=== PATIENT | male | born 1950 | race Caucasian/White ===

== ENCOUNTER → 2024-01-31 14:49 | Outpatient (REF) | payer OTHER, MEDICARE, SELFPAY | LOC: RCS 14:49 | PROVIDERS: ATTENDING PHYSICIAN Nuclear Medicine Nuclear Cardiology; FAMILY PHYSICIAN Internal Medicine Geriatric Medicine | DX: I10 Essential (primary) hypertension (principal); E78.2 Mixed hyperlipidemia; I49.3 Ventricular premature depolarization; I34.0 Nonrheumatic mitral (valve) insufficiency | CPT/HCPCS: 93306 ==

== ENCOUNTER → 2024-10-08 14:11 | Outpatient (REF) | payer OTHER, SELFPAY ==
--- NOTE | 2024-09-25 17:31 | PN.DIAED02 ---
Referral
DSME Class Series Code: [id number]
Referred For: Diabetes Self-Management Training, Medical Nutrition Therapy, Self-Blood Glucose Monitoring, Long-Term Complication Instruction, Accute Complication Instruction, Continuous Glucose Monitoring, Medication management, Insulin
Instruction, Care Coordination, Disease Management
PHI Release Authorization Form Signed: Yes
Patient Problems:
Current Active Problems
Problem Status Onset
Type 2 diabetes mellitus without complications
Demographic
(1) Type 2 diabetes mellitus without complications
Status: Acute Code(s): E11.9 - Type 2 diabetes mellitus without complications
Patient's primary language-: Angolan
Education: High school/GED
Occupation: Professional
Hours Worked/Week: 20-40
- Social
Primary Support Person: Self
Primary Care Takers: Self
Living Arrangements: Self
- Learning Methods
Preferred Method: Reading, Lecture/audio
Barriers to Learning: None
Glycemic Control
- Blood Glucose Monitoring Assessment
Date: 08/27/24 (134 mg/dL)
Blood glucose monitoring at home: No (Educated on a Contour Next EZ meter)
- Hemoglobin A1c
Date: 09/04/24
A1C Percentage (%): 6.6
Medical History of Diabetes
Family Diabetes History: Grandfather
Previous Diabetes Education: No
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
tunnel left hand and pain in knuckle right hand)
Current Home Medication
- Insulin Management
Patient adjusts own insulin dosages: Yes
Measures
- Anthropometrics
Height: 5 ft 10 in
Actual Weight: 206 lb
- Blood Pressure / Pulse
Blood pressure: 153/74
Pulse: 60
- Diabetes Management
Medical Management for Diabetes: Complete physical exam (08/2024), Dental exam (08/2023), Dilated eye exam (03/2024), Flu Vaccination (08/2023), Pneumonia vaccination (08/2024)
Self-Care
- Tobacco Usage
Do you now, or have you ever smoked?: Never smoked
- Alcohol & Drugs Usage
Drinks Alcohol: Yes
Amount/day: < 1 drink per day
- Meals & Dining
Meals & Dining: Patient skips meals: No, Food Intolerance / Allergy: No, Cultural / Adventism Dietary Needs: No
Primary Harness Mender: Self
Dining Out Frequency: 1-3x per week
- Physical Activity
Physical Limitation: No
Patient participates in physical Activity: Yes
Activity Types: Combination, Strength training, walking
Duration: 31-40 minutes
Frequency: 3-5x per week
- Self Foot-Care
Performs Self Foot-Exam: No
- Patient-Self Assessment
Diabetes Knowledge: Fair
Feelings About Diabetes: Fear, Overwhelmed / Confused, Sadness / Depression, Anger
General Health: Fair
Importance of Health: Extremely
Stress Level: Medium
Diabetes Interferes With:: Nothing
Barriers to Diabetes Management: Nothing
Depression Survey Score: 0
- Diabetes Identification
Carries Diabetes Identification: No
Care Plan
- Education Needs
Patient Education Needs: Diabetes disease process, Chronic complications, Acute complications, Medication, Monitoring, Physical activity, Psychosocial Adjustment, Nutritional management, Goal setting & problem solving
Recommended Diabetes Training Program based on assessment: Outpatient Diabetes Education Program
- Plan of Care
Plan of Care:
I met with Toño for his initial assessment for the September DSME course. He verbalized that he has had pre-diabetes for appx 3 years and his recent A1c in 08/2024 was 6.6 %. He has been taking Metformin 500 mg daily since he was diagnosed with
pre-diabetes. He has recently increased his exercise to appx 4 to 5 times per week for 45 minutes, a combination of weights and walking. We discussed increasing the duration and/or intensity as one of his goals. Toño was instructed on how to use a
Contour Next EZ glucometer and demonstrated a fingerstick in the office. His bg was 134 mg/dL a few hours post breakfast. I provided written material on a monitoring schedule and glucose target ranges fasting and 2 hours post meal. We reviewed
basic nutrition and label reading and I encouraged him to write down his current meals so he an ask specific questions in class. Toño will reach out to the office with any questions prior to starting the DSME program.
--- NOTE | 2024-09-26 12:17 | PN.DIAED04 ---
Education Record
- Education Record
Class Attended: Other (initial DSME assessment)
DSME Class Series Code: [id number]
Instructor: Registered Nurse (Bisi Flaherty RN)
Pre-Program Knowledge: Needs review / Assistance
Pre-Test Score (%): 63
Goals
- Goal 1
Being Active: Exercise 15 minutes-3 times per week, Exercise more often (increase duration from 45 minutes to 60 minutes)
Goals To Be Evaluated: Exercise 15 mins-3x/week. Exercise more often
- Goal 2
Healthy Eating: Make better food choices
Goals To Be Evaluated: Make better food choices
- Goal 3
Monitoring: Follow monitoring schedule
Goals To Be Evaluated: Follow monitoring times
--- NOTE | 2024-10-10 15:37 | PN.DIAED04 ---
Education Record
- Education Record
Class Attended: Class 1
DSME Class Series Code: [id number]
Instructor: Nurse Practitioner (ARCHANA Castillo)
Class Curriculum:
Outpatient Diabetes Education Program:
Class 1 (120 minutes)
Describe the diabetes disease process and treatment options
Diabetes management
Develop personal strategies to promote health and behavior change
Integrate psychosocial adjustment for daily living
Monitor blood glucose and other parameters. Interpret and use the results for self-management decision making
Prevent, detect, and treat acute complications
Class Length (mins): 120
Post-Class 1 Test Score (%): 88
--- NOTE | 2024-10-10 15:37 | PN.DIAED14 ---
This is to notify you that your patient with diabetes, WENCESLAO IRBY ( 1950), has enrolled in our diabetes self-management classes that are being held at [facility].
These classes will include an introduction to diabetes, diet, medication, exercise and prevention of complications. At the end of our class series, you will receive a report of your patient's participation and progress for your records.
Please contact me at the Diabetes Center, , if there is any particular information regarding your patient that might be helpful to me.
Sincerely,
Elmer MAGAÑA-ROXY,[facility]
== END ==
LOC: DES 14:11
PROVIDERS: ATTENDING PHYSICIAN Internal Medicine Geriatric Medicine
DX: E11.9 Type 2 diabetes mellitus without complications (principal)
CPT/HCPCS: 99078

== ENCOUNTER → 2024-10-15 10:20 | Outpatient (REF) | payer OTHER, SELFPAY ==
--- NOTE | 2024-10-16 15:49 | PN.DIAED04 ---
Education Record
- Education Record
Class Attended: Class 2
DSME Class Series Code: [id number]
Instructor: Registered Dietitian (Nguyen Dowling, RD, LDN, CDE)
Class Curriculum:
Outpatient Diabetes Education Program:
Class 2 (120 minutes)
Incorporate nutritional management into lifestyle
Understanding nutritional value
Understanding carbohydrate counting
Class Length (mins): 120
== END ==
LOC: DES 10:20
PROVIDERS: ATTENDING PHYSICIAN Internal Medicine Geriatric Medicine
DX: E11.9 Type 2 diabetes mellitus without complications (principal)
CPT/HCPCS: 99078

== ENCOUNTER → 2024-10-22 08:29 | Outpatient (REF) | payer OTHER, SELFPAY ==
--- NOTE | 2024-10-23 10:14 | PN.DIAED04 ---
Education Record
- Education Record
Class Attended: Class 3
DSME Class Series Code: [id number]
Instructor: Registered Dietitian (Nguyen Dowling, RD, LDN, CDE)
Class Curriculum:
Outpatient Diabetes Education Program:
Class 3 (120 minutes)
Incorporate nutritional management into lifestyle
Class Length (mins): 120
== END ==
LOC: DES 08:29
PROVIDERS: ATTENDING PHYSICIAN Internal Medicine Geriatric Medicine
DX: E11.9 Type 2 diabetes mellitus without complications (principal)
CPT/HCPCS: 99078

== ENCOUNTER → 2024-10-29 09:16 | Outpatient (REF) | payer OTHER, SELFPAY | LOC: DES 09:16 | PROVIDERS: ATTENDING PHYSICIAN Internal Medicine Geriatric Medicine | DX: E11.9 Type 2 diabetes mellitus without complications (principal) | CPT/HCPCS: 99078 ==

== ENCOUNTER → 2024-11-05 12:27 | Outpatient (REF) | payer OTHER, SELFPAY ==
--- NOTE | 2024-11-08 10:20 | PN.DIAED04 ---
Education Record
- Education Record
Class Attended: Class 5
DSME Class Series Code: [id number]
Instructor: Nurse Practitioner (ARCHANA Castillo)
Class Curriculum:
Outpatient Diabetes Education Program:
Class 5 (120 minutes)
Prevent, detect, and treat acute complications
Prevent, detect, and treat chronic complications through risk reduction
Develop personal strategies to address psychosocial issues and concerns
Development of diabetes self-management support plan
Letter to physician with DSMS plan attached sent
Class Length (mins): 120
Post-Program Knowledge: Demonstrates competency
Post-Test Score (%): 98
Post-Program Assessment
- Post-Program Assessment
Actual Weight: 205 lb
Blood pressure: 147/69
Post-Program Depression Survey Score: 5
Reviewing Previous Goals?: Yes
Pre-Program Depression Survey Score: 0
- Goals 1 Evaluation
Goals To Be Evaluated: Exercise 15 mins-3x/week. Exercise more often
- Goals 2 Evaluation
Goals To Be Evaluated: Make better food choices
- Goals 3 Evaluation
Goals To Be Evaluated: Follow monitoring times
--- NOTE | 2024-11-08 10:21 | PN.DIAED16 ---
This is to notify you that your patient with diabetes, WENCESLAO Prosper IRBY ( 1950), has attended the entire series of Diabetes Self-Management Education Classes.
Class 1 (120 minutes): Diabetes Overview - monitoring, stress/psychosocial adjustment, support, goal setting
Class 2 (120 minutes): Meal Planning - serving sizes, menu plans
Class 3 (120 minutes): Introduction to Carbohydrate Counting, Analyzing Food Labels
Class 4 (120 minutes): Medication, Exercise and Activity
Class 5 (120 minutes): Sick Day Management, Strategies to Reduce Complications, Problem Solving, Resources
The following behavioral goals were identified:
Exercise 15 mins-3x/week
Exercise more often
Make better food choices
Follow monitoring times
A follow-up call will be made within three to six months to evaluate attainment of these goals and to check post-program Hemoglobin A1c and overall progress. All class participants are encouraged to contact me if I can be any further assistance in
learning how to manage their diabetes.
Sincerely,
Elmer MAGAÑA-, [facility] [place]
== END ==
LOC: DES 12:27
PROVIDERS: ATTENDING PHYSICIAN Internal Medicine Geriatric Medicine
DX: E11.9 Type 2 diabetes mellitus without complications (principal)
CPT/HCPCS: 99078

== ENCOUNTER → 2024-11-26 09:32 | Outpatient (REF) | payer OTHER, SELFPAY ==
[2024-11-26 10:39] LABS: Urine Albumin 1+ (Neg - Trace); Urine Bilirubin Negative (Negative); Urine Character Clear (Clear); Urine Color Yellow; Urine Glucose Negative (Negative); Urine Ketone 2+ (Negative); Urine Leukocyte Negative (Negative); Urine Nitrite Negative (Negative); Urine Occult Blood 1+ (Negative); Urine Specific Gravity 1.015 (<1.030); Urine Urobilinogen Negative (Neg - 1+)
[2024-11-26 10:49] LABS: % Basophils 0.6 % (0-2); % Eosinophils 2.7 % (0-6); % Immature Granulocytes 0.2 % (0-0.5); % Lymphocytes 26.7 % (20.5-51.1); % Monocytes 9.5 % (1.7-9.3); % Neutrophils 60.3 % (42.2-75.2); Absolute Eosinophils 0.1 10^3/uL (0-0.7); Absolute Lymphocytes 1.3 10^3/uL (1.2-3.4); Absolute Monocytes 0.5 10^3/uL (0.1-0.6); Absolute Neutrophils 2.9 10^3/uL (1.4-6.5); Hematocrit 34.3 % (39.0-52.0); Hemoglobin 12.1 g/dL (13.0-18.0); Mean Corp Hgb Conc. 35.3 g/dL (33.0-37.0); Mean Corpuscular Hgb 32.4 pg (27.0-31.0); Nucleated Red Blood Cells % 0 % (-); Platelet Count 170 10^3/uL (130-400); Red Blood Cell Count 3.73 10^6/uL (4.70-6.10); Red Cell Dist. Width 12.1 % (11.5-14.5); White Blood Cell Count 4.8 10^3/uL (4.8-10.8)
[2024-11-26 11:24] LABS: Urine Mucus Moderate; Urine Red Blood Cell 0-2 /HPF (0-2); Urine White Cell 0-2 /HPF (0-5)
[2024-11-26 11:26] LABS: Urine Bacteria Few (Negative)
[2024-11-26 11:27] LABS: Urine Hyaline Cast 0-2 /LPF (0-2); Urine Squamous Cell 0-2 /LPF (Few)
[2024-11-26 12:03] LABS: Glycohemoglobin (HgbA1c) 5.9 % (4.0-5.6)
[2024-11-26 14:51] LABS: ALT (SGPT) 22 U/L (0-50); AST (SGOT) 28 U/L (17-59); Albumin 4.9 g/dl (3.5-5.0); Alkaline Phosphatase 52 U/L (38-126); Blood Urea Nitrogen 15 mg/dl (9-20); Calcium 9.2 mg/dl (8.4-10.2); Carbon Dioxide 25 mmol/L (22-30); Chloride 104 mmol/L (98-107); Glucose 127 mg/dl (70-99); HDL Cholesterol 67 mg/dl; LDL Cholesterol, Calculated 142 mg/dl; Potassium 4.1 mmol/L (3.5-5.1); Sodium 142 mmol/L (135-145); Total Bilirubin 1.2 mg/dl (0.2-1.3); Total Cholesterol 225 mg/dl (50-199); Triglyceride 82 mg/dl (10-149); Very Low Density Lipoprotein 16 mg/dl (0-30); eGFR > 60.00
== END ==
LOC: REG 09:32
PROVIDERS: ATTENDING PHYSICIAN Internal Medicine Geriatric Medicine
DX: Z96.642 Presence of left artificial hip joint (principal); E11.9 Type 2 diabetes mellitus without complications; Z96.641 Presence of right artificial hip joint; I10 Essential (primary) hypertension; E78.2 Mixed hyperlipidemia; Z53.20 Procedure and treatment not carried out because of patient's decision for unspecified reasons; E03.8 Other specified hypothyroidism; J20.9 Acute bronchitis, unspecified; Z13.31 Encounter for screening for depression
CPT/HCPCS: 36415; 80053; 80061; 81003; 81015; 82306; 83036; 85025

== ENCOUNTER 2024-12-05 06:24 | Day surgery (SDC) | payer OTHER, SELFPAY ==
[2024-12-05 07:50] LABS: Glucose - Point of Care 129 mg/dl (70-99)
== END 2024-12-05 10:03 | disposition home or self-care (01) ==
LOC: GI 06:24
PROVIDERS: ATTENDING PHYSICIAN Internal Medicine Gastroenterology
DX: Z12.11 Encounter for screening for malignant neoplasm of colon (principal); K64.8 Other hemorrhoids; K57.30 Diverticulosis of large intestine without perforation or abscess without bleeding; Z83.719 Family history of colon polyps, unspecified; Z86.0100 Personal history of colon polyps, unspecified
CPT/HCPCS: G0105; 82962

== ENCOUNTER → 2025-03-08 13:16 | Outpatient (REF) | payer OTHER, SELFPAY | LOC: RCS 13:16 | PROVIDERS: ATTENDING PHYSICIAN Nuclear Medicine Nuclear Cardiology; FAMILY PHYSICIAN Internal Medicine Geriatric Medicine | DX: I10 Essential (primary) hypertension (principal); I34.0 Nonrheumatic mitral (valve) insufficiency; I35.0 Nonrheumatic aortic (valve) stenosis | CPT/HCPCS: 93306 ==

== ENCOUNTER → 2025-04-12 11:38 | Outpatient (REF) | payer OTHER, MEDICARE, SELFPAY ==
[2025-04-12 14:07] LABS: Hematocrit 35.7 % (39.0-52.0); Hemoglobin 12.3 g/dL (13.0-18.0); Mean Corp Hgb Conc. 34.5 g/dL (33.0-37.0); Mean Corpuscular Volume 90.8 fL (80.0-94.0); Nucleated Red Blood Cells % 0 % (-); Platelet Count 200 10^3/uL (130-400); Red Cell Dist. Width 12.2 % (11.5-14.5)
[2025-04-12 14:39] LABS: ALT (SGPT) 27 U/L (0-50); AST (SGOT) 28 U/L (17-59); Albumin 4.8 g/dl (3.5-5.0); Alkaline Phosphatase 46 U/L (38-126); Blood Urea Nitrogen 13 mg/dl (9-20); Calcium 9.7 mg/dl (8.4-10.2); Carbon Dioxide 29 mmol/L (22-30); Chloride 103 mmol/L (98-107); Glucose 140 mg/dl (70-99); Lipase 40 U/L (23-300); Potassium 4.0 mmol/L (3.5-5.1); Sodium 138 mmol/L (135-145); Total Protein 6.9 g/dl (6.3-8.2); eGFR > 60.00
== END ==
LOC: REG 11:38
PROVIDERS: ATTENDING PHYSICIAN Nurse Practitioner Family; FAMILY PHYSICIAN Internal Medicine Geriatric Medicine
DX: R10.13 Epigastric pain (principal)
CPT/HCPCS: 36415; 80053; 83690; 85025; 93005

== ENCOUNTER 2025-05-03 06:16 | Day surgery (SDC) | payer OTHER, SELFPAY ==
[2025-05-03 07:43] LABS: Glucose - Point of Care 137 mg/dl (70-99)
== END 2025-05-03 10:16 | disposition home or self-care (01) ==
LOC: GI 06:16
PROVIDERS: ATTENDING PHYSICIAN Internal Medicine Gastroenterology
DX: R13.10 Dysphagia, unspecified (principal); K44.9 Diaphragmatic hernia without obstruction or gangrene; R12 Heartburn; Z80.0 Family history of malignant neoplasm of digestive organs; K31.89 Other diseases of stomach and duodenum
CPT/HCPCS: 43239; 82962; 88305; 88342

== ENCOUNTER → 2025-06-03 09:41 | Outpatient (REF) | payer OTHER, SELFPAY ==
[2025-06-03 11:28] LABS: Hematocrit 37.1 % (39.0-52.0); Hemoglobin 12.1 g/dL (13.0-18.0); Mean Corp Hgb Conc. 32.6 g/dL (33.0-37.0); Mean Corpuscular Volume 94.9 fL (80.0-94.0); Nucleated Red Blood Cells % 0 % (-); Platelet Count 178 10^3/uL (130-400); Red Cell Dist. Width 12.5 % (11.5-14.5)
[2025-06-03 11:33] LABS: Urine Character Clear (Clear)
[2025-06-03 11:44] LABS: Urine White Cell 0-2 /HPF (0-5)
[2025-06-03 11:49] LABS: ALT (SGPT) 32 U/L (0-50); AST (SGOT) 30 U/L (17-59); Albumin 4.4 g/dl (3.5-5.0); Alkaline Phosphatase 57 U/L (38-126); Blood Urea Nitrogen 11 mg/dl (9-20); Calcium 9.0 mg/dl (8.4-10.2); Carbon Dioxide 30 mmol/L (22-30); Chloride 106 mmol/L (98-107); Glucose 142 mg/dl (70-99); HDL Cholesterol 68 mg/dl; LDL Cholesterol, Calculated 131 mg/dl; Potassium 4.0 mmol/L (3.5-5.1); Sodium 141 mmol/L (135-145); Total Protein 6.6 g/dl (6.3-8.2); Very Low Density Lipoprotein 23 mg/dl (0-30); eGFR > 60.00
[2025-06-03 12:05] LABS: Vitamin D, 25-OH*** 52.1 ng/mL (30-80)
[2025-06-03 12:08] LABS: Glycohemoglobin (HgbA1c) 6.1 % (4.0-5.6)
[2025-06-03 12:13] LABS: PSA, Total - Screen 1.76 ng/ml (0.0-4.0); TSH 0.67 uIU/ml (0.47-4.68)
[2025-06-03 12:16] LABS: Microalb - Urine Creatinine 100.100 mg/dl
[2025-06-03 12:23] LABS: Microalbumin, Random Urine < 0.6 mg/dl (0.6-1.7)
== END ==
LOC: REG 09:41
PROVIDERS: ATTENDING PHYSICIAN Internal Medicine Geriatric Medicine
DX: E11.9 Type 2 diabetes mellitus without complications (principal); M16.11 Unilateral primary osteoarthritis, right hip; Z96.641 Presence of right artificial hip joint; I10 Essential (primary) hypertension; E78.2 Mixed hyperlipidemia; Z53.20 Procedure and treatment not carried out because of patient's decision for unspecified reasons; E03.8 Other specified hypothyroidism; J20.9 Acute bronchitis, unspecified; Z13.31 Encounter for screening for depression
CPT/HCPCS: 36415; 80053; 80061; 81003; 81015; 82043; 82306; 82570; 83036; 84439; 84443; 85025; G0103

== ENCOUNTER 2025-07-15 09:42 | Emergency (ER) | payer OTHER, SELFPAY ==
[2025-07-15 09:46] VITALS: BP 173/78
--- NOTE | 2025-07-15 10:26 | ED.MUSCINJ ---
HPI-Injury
General
Chief Complaint: Fall
Source: patient
Exam Limitations: none
Time Seen by Provider: 07/15/25 10:12
History of Present Illness-Injury
Initial Injury comments:
74-year-old male not anticoagulated presents with 4 days worth of anterior lateral chest wall pain on the right side. He had a mechanical fall carrying a dish of food. He states his elbow dug into his side. Since then he is had pain. No
shortness of breath. No hemoptysis. No other complaints at this time
Past History
Past History
ED Past Medical History: HTN, Hypothyroidism and Other (History of left rotator cuff injury, migraine, irritable bowel syndrome)
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
Social History
Tobacco: Non-smoker
Alcohol: None
Drug: None
Personal: Other
Living: with family
Employment: Employed
Family History
Family History: Hypertension
Phy Exam
Physical Exam
Physical Exam:
General: Well-appearing male no acute respiratory distress
HEENT: Normal cephalic atraumatic
Heart: Regular rate and rhythm
Lungs: Clear breath sounds heard all bowen
Musculoskeletal exam: The patient is tender over the anterior lateral inferior right chest wall without step-off or deformity no overlying ecchymosis or subcutaneous emphysema
The abdomen is soft and nontender
Injury Course
Orders/Labs/Results
Orders:
Orders
07/15/25 09:52
CR Ribs-right 3 Vw W/pa Chest* Urgent
Comment:
Reason For Exam: fell onto R side ribs, pain/injury
MDM/Problems Addressed
Differential Diagnosis Includes:
Mechanical fall with right anterior lateral chest wall pain. Consider contusion versus chest wall strain versus fracture versus pneumothorax
X-rays of the right ribs were ordered through triage which I have personally reviewed. There is no acute fracture there is no pneumothorax.
*Pulse Oximetry
SaO2: 98
Oxygen Mode of Delivery: Room air
Patient hypoxic: no
*Critical Care Note
Total Time (30-74mins, 75-104mins- exclusive of procedures): Not Applicable
Update Note
Update Note:
Will treat as chest wall contusion stable for discharge
ED Attending Note
-
Portions of this chart may have been created with voice recognition software.� Occasional wrong word or��sound alike� substitutions may have occurred due to the inherent limitations of voice recognition software.
Discharge Plan
Departure
Patient Disposition: Home (Routine Discharge)
Date of Disposition: 07/15/25
Time of Disposition: 10:32
Patient with high blood pressure during this ER visit?: No
Discharge Problem:
Chest wall contusion
Instructions: Contusion (DC)
Prescriptions:
No Action
multivitamin [Jvs-Crrlqn-Pqsws] 1 EACH tablet
1 ea PO DAILY
levothyroxine 150 MCG tablet
137 mcg PO DAILY
losartan 25 MG tablet
50 mg PO DAILY
cholecalciferol (vitamin D3) [Vitamin D3] 400 UNITS tablet
400 units PO DAILY
magnesium 200 MG tablet
200 mg PO DAILY
L.acidoph,paracasei,B.animalis 1 EACH capsule
1 ea PO DAILY
mupirocin 1 APPLIC ointment
1 applic topical BID Qty: 1 0RF
Patient Comments:
patient started applying to b/l nares bid two days ago 10/26/21 am
celecoxib 200 MG capsule
200 mg PO DAILY Qty: 14 0RF
Rx Instructions:
with food
sennosides [senna] 1 TABLET tablet
2 tab PO BID 0RF
aspirin 325 MG tablet
325 mg PO DAILY 0RF
Rx Instructions:
with food
amlodipine 5 MG tablet
5 mg PO DAILY Qty: 30 1RF
Rx Instructions:
hold systolic blood pressure <130 if taking [place]
famotidine 20 MG tablet
20 mg PO HS Qty: 30 0RF
magnesium hydroxide 30 ML suspension
30 ml PO DAILYPRN PRN (Reason: constipation) 0RF
hydrocodone-acetaminophen 1 TABLET tablet
1 tab PO Q6HPRN PRN (Reason: moderate-severe pain) Qty: 30 0RF
Rx Instructions:
Dx IRMA
Ongoing therapy
1 tab moderate pain or 2 if pain severe
acetaminophen-codeine 1 TABLET tablet
1 tab PO Q6HPRN PRN (Reason: pain ) Qty: 0 0RF
metformin 500 MG tablet
500 mg PO DAILY Qty: 30 2RF
Referrals:
UNKNOWN - PT NOT,INTERVIEWE [Family Provider]
Activity Restrictions/Additional Instructions:
As discussed, there is no fracture. You may use ibuprofen or Tylenol for pain. Avoid heavy lifting or twisting activities. Return if worse otherwise follow-up with your doctor
Interventions
Interventions:
*Risk Screen - Suicide Last Done: 07/15/25 09:46
*General Assessment Last Done: 07/15/25 09:46
*Neglect/Abuse Screening Last Done: 07/15/25 09:46
Discharge Date and Time
Print Language: TURKMEN
== END 2025-07-15 10:41 | disposition home or self-care (01) ==
LOC: EMR 09:42
PROVIDERS: EMERGENCY PHYSICIAN Emergency Medicine
DX: S20.211A Contusion of right front wall of thorax, initial encounter (principal); W18.30XA Fall on same level, unspecified, initial encounter; I10 Essential (primary) hypertension; E03.9 Hypothyroidism, unspecified; K58.9 Irritable bowel syndrome, unspecified; Z89.011 Acquired absence of right thumb; Z82.49 Family history of ischemic heart disease and other diseases of the circulatory system
CPT/HCPCS: 99283; 71101